=== PATIENT | male | born 1990 | race Hispanic/Latino ===

== ENCOUNTER 2016-09-05 16:19 | Emergency (ER) | payer BC ==
[~2016-09-05] VITALS: Ht 170.2 cm; Wt 136.0 kg
[~2016-09-05 16:19] MED LIST: COLCHICINE0.6 M1 PO; LISINOPRIL10 MG PO; LO-DOSE ASPIRIN81 M2 PO; LOPRESSOR25 MG PO
[2016-09-05 17:57] LABS: HEMATOCRIT 44.1 % (38.0-50.0); MCV 85.1 FL (86-99); MEAN PLAT.VOLUME 12.2 uM^3 (9.0-12.4); PLATELET COUNT 163 K/uL (156-360); RBC DIS.WIDTH-CV 12.7 % (11.8-14.6); RBC DIS.WIDTH-SD 39.5 % (39-53); RED BLOOD COUNT 5.18 M/uL (4.00-5.50)
[2016-09-05 18:00] LABS: CHLORIDE 97 mEq/L (99-109); POTASSIUM 4.3 mEq/L (3.7-5.4); SODIUM 132 mEq/L (136-147)
[2016-09-05 18:02] LABS: GLUCOSE 121 mg/dL (70-99)
[2016-09-05 18:03] LABS: ANION GAP 14 MEQ/L (2-14)
[2016-09-05 18:06] LABS: GFR ESTIMATE (CALCULATED) > 59 mL/min/
[2016-09-05 18:07] LABS: UREA NITROGEN (BUN) 16 mg/dL (9-23)
[2016-09-05 18:45] LABS: INFLUENZA A VIRAL ANTIGEN NEGATIVE; INFLUENZA B VIRAL ANTIGEN NEGATIVE
[2016-09-05 19:32] LABS: ADD MIUA? YES; BILIRUBIN NEGATIVE; BLOOD SMALL; COLOR YELLOW ((YELLOW)); GLUCOSE (STRIP) NEGATIVE; KETONES NEGATIVE; LEUKOCYTES NEGATIVE; NITRITE NEGATIVE; PROTEIN (STRIP) 100; SPECIFIC GRAVITY 1.016 (1.000-1.030); UROBILINOGEN 0.2 MG/DL (0.2-1.0)
[2016-09-05 19:44] LABS: BACTERIA NONE SEEN /HPF; EPITHELIAL CELLS NONE SEEN /HPF; MUCUS TRACE /LPF; RED BLOOD CELLS 0-5 /HPF (0-5); WHITE BLOOD CELLS 0-5 /HPF (0-5)
[2016-09-05 21:47] VITALS: BP 130/60
== END 2016-09-05 21:48 | disposition home or self-care (01) ==
LOC: EME 16:19
PROVIDERS: Nurse Practitioner Family
DX: B34.9 Viral infection, unspecified (principal); E86.0 Dehydration; R50.9 Fever, unspecified; R00.0 Tachycardia, unspecified; I10 Essential (primary) hypertension; E78.5 Hyperlipidemia, unspecified; J45.909 Unspecified asthma, uncomplicated; Z87.891 Personal history of nicotine dependence
CPT/HCPCS: 71020; 80048; 81003; 83605; 85027; 87040; 87502; 87651 90; 99281; 99284; J1885; J7030

== ENCOUNTER 2016-09-07 00:26 | Emergency (ER) | payer BC ==
[~2016-09-07] VITALS: Ht 182.9 cm; Wt 133.9 kg
[2016-09-07 01:36] LABS: HEMATOCRIT 43.5 % (38.0-50.0); MCH 29.2 PG (29.0-34.0); MCHC 34.5 G/DL (30.0-36.0); MCV 84.6 FL (86-99); MEAN PLAT.VOLUME 12.3 uM^3 (9.0-12.4); PLATELET COUNT 115 K/uL (156-360); RBC DIS.WIDTH-CV 12.7 % (11.8-14.6); RBC DIS.WIDTH-SD 39.2 % (39-53); RED BLOOD COUNT 5.14 M/uL (4.00-5.50); WHITE BLOOD COUNT 5.7 K/uL (4.1-10.2)
[2016-09-07 01:47] LABS: CHLORIDE 95 mEq/L (99-109); POTASSIUM 4.6 mEq/L (3.7-5.4); SODIUM 131 mEq/L (136-147)
[2016-09-07 01:49] LABS: GLUCOSE 123 mg/dL (70-99)
[2016-09-07 01:50] LABS: ANION GAP 14 MEQ/L (2-14)
[2016-09-07 01:53] LABS: GFR ESTIMATE (CALCULATED) > 59 mL/min/
[2016-09-07 01:54] LABS: UREA NITROGEN (BUN) 12 mg/dL (9-23)
[2016-09-07 02:25] LABS: INTERNAL CONTROL VALID? YES; MONOSPOT (MONONUCLEOSIS SEROL) NEGATIVE
[2016-09-07 03:32] VITALS: BP 131/88
== END 2016-09-07 03:34 | disposition home or self-care (01) ==
LOC: EME 00:26
PROVIDERS: Emergency Medicine
DX: B34.9 Viral infection, unspecified (principal); I10 Essential (primary) hypertension; E78.5 Hyperlipidemia, unspecified; J45.909 Unspecified asthma, uncomplicated; Z87.891 Personal history of nicotine dependence
CPT/HCPCS: 80048; 83605; 85027; 86308; 93005; 99281; 99284; J7030

== ENCOUNTER 2016-12-18 11:28 | Emergency (ER) | payer BC ==
[~2016-12-18] VITALS: Ht 185.4 cm; Wt 135.9 kg
[2016-12-18 11:59] LABS: HEMATOCRIT 44.6 % (38.0-50.0); MCH 29.8 PG (29.0-34.0); MCHC 33.9 G/DL (30.0-36.0); MEAN PLAT.VOLUME 12.8 uM^3 (9.0-12.4); PLATELET COUNT 223 K/uL (156-360); RBC DIS.WIDTH-CV 12.4 % (11.8-14.6); RBC DIS.WIDTH-SD 40.1 % (39-53); RED BLOOD COUNT 5.07 M/uL (4.00-5.50); WHITE BLOOD COUNT 10.5 K/uL (4.1-10.2)
[2016-12-18 12:13] LABS: CHLORIDE 102 mEq/L (99-109); SODIUM 137 mEq/L (136-147)
[2016-12-18 12:15] LABS: GLUCOSE 147 mg/dL (70-99)
[2016-12-18 12:16] LABS: ANION GAP 11 MEQ/L (2-14); TOTAL BILIRUBIN 0.4 mg/dL (0.0-1.0)
[2016-12-18 12:19] LABS: ALKALINE PHOSPHATASE 80 IU/L (3-129); GFR ESTIMATE (CALCULATED) > 59 mL/min/; UREA NITROGEN (BUN) 11 mg/dL (9-23)
[2016-12-18 12:22] LABS: LIPASE 19 U/L (1.0-51.0)
[2016-12-18 13:10] LABS: BASOPHIL COUNT 0.1 K/uL (0-0.1); EOSINOPHIL (%) 4.4 % (0-5); EOSINOPHIL COUNT 0.5 K/uL (0-0.3); IMMATURE GRANULOCYTE (%) 0.4 % (0.0-0.7); INSTRUMENT ABS NEUTROPHIL CT 6.7 K/uL; LYMPHOCYTE COUNT 2.5 K/uL (1.0-2.8); MONOCYTE COUNT 0.7 K/uL (0-0.8); NEUTROPHIL (%) 63.5 % (45-76); NEUTROPHIL COUNT 6.7 K/uL (1.8-6.4)
[2016-12-18 13:13] LABS: ADD MIUA? YES; BILIRUBIN NEGATIVE; BLOOD NEGATIVE; COLOR YELLOW ((YELLOW)); GLUCOSE (STRIP) NEGATIVE; KETONES NEGATIVE; LEUKOCYTES NEGATIVE; NITRITE NEGATIVE; PROTEIN (STRIP) 100; SPECIFIC GRAVITY 1.021 (1.000-1.030); UROBILINOGEN 0.2 MG/DL (0.2-1.0)
[2016-12-18 13:17] LABS: BACTERIA NONE SEEN /HPF; EPITHELIAL CELLS NONE SEEN /HPF; MUCUS TRACE /LPF; RED BLOOD CELLS 0-5 /HPF (0-5); UCUL ADDED? NO; WHITE BLOOD CELLS 0-5 /HPF (0-5)
[2016-12-18] MEDS ORDERED: NAPROSYN500 MG PO (15:51)
[2016-12-18 16:26] VITALS: BP 145/84
== END 2016-12-18 16:27 | disposition home or self-care (01) ==
LOC: EME 11:28
DX: R10.11 Right upper quadrant pain (principal); K57.30 Diverticulosis of large intestine without perforation or abscess without bleeding; I10 Essential (primary) hypertension; J45.909 Unspecified asthma, uncomplicated; E78.5 Hyperlipidemia, unspecified; R73.03 Prediabetes; E55.9 Vitamin D deficiency, unspecified; F17.200 Nicotine dependence, unspecified, uncomplicated
CPT/HCPCS: 74176; 76705; 80053; 81003; 83690; 85025; 85027; 99281; 99284